=== PATIENT | female | born 1975 | race Caucasian/White ===

== ENCOUNTER 2018-03-09 07:27 | Day surgery (SDC) | payer MEDICAID ==
[~2018-03-09] VITALS: Ht 162.6 cm; Wt 90.9 kg
[~2018-03-09 07:27] MED LIST: ACET500C44 PO; CYAN-35 PO; FLUT1DIS3 IH; METO10TA3 PO; MULT-1052 PO; PANT40TA25 PO; SERT25TA5 PO; SODIUM CHLORIDE 0.9% 1000ML 1,000 ML IV ONE; SUMA50TA17 PO; TRAM50TA4 PO
[2018-03-09 08:11] VITALS: BP 110/71
[2018-03-09] MEDS ORDERED: LIDOCAINE HCL-MPF 2% 5ML VIAL ONE (09:27)
[2018-03-09] MEDS ORDERED: PROPOFOL 10 MG/ML 20ML VIAL IV ONE (09:27)
[2018-03-09 10:40] VITALS: BP 99/57
[2018-03-09 10:45] VITALS: BP 111/68
[2018-03-09 10:52] VITALS: BP 119/48
== END 2018-03-09 11:10 | disposition home or self-care (01) ==
LOC: ENDO 07:27 → DAH 07:27 → ENDO 11:10
PROVIDERS: ATTEND Internal Medicine
DX: K64.0 First degree hemorrhoids (principal); K29.50 Unspecified chronic gastritis without bleeding; K22.8 Other specified diseases of esophagus; K31.89 Other diseases of stomach and duodenum; K64.9 Unspecified hemorrhoids; J45.909 Unspecified asthma, uncomplicated; K21.9 Gastro-esophageal reflux disease without esophagitis; M19.90 Unspecified osteoarthritis, unspecified site; Z79.899 Other long term (current) drug therapy; Z90.49 Acquired absence of other specified parts of digestive tract; Z90.89 Acquired absence of other organs; Z90.710 Acquired absence of both cervix and uterus
CPT/HCPCS: 43239; 45380; 88305; A4606; J2704; J3490; J7030